=== PATIENT | male | born 1995 | race Caucasian/White ===

== ENCOUNTER → 2024-01-25 09:25 | Day surgery (SDC) | payer OTHER, SELFPAY ==
[2024-01-23 15:06] VITALS: BMI 30.3
--- NOTE | 2024-01-24 10:55 | P.CONAN_ITS ---
HPI - Anesthesia Eval Consult details Narrative: 28yo M for Colonoscopy [facility], [facility] Past Medical History Medical History (Updated 01/23/24 @ 15:04 by Bea Mckeon RN) Hypothyroid Sleep apnea GERD (gastroesophageal reflux disease) Depression Surgical History Surgical History (Updated 01/23/24 @ 15:05 by Bea Mckeon RN) No pertinent past surgical history Social History Social History Patient Tobacco Use Status: Never used Tobacco Advance Directives Information Provided: No Meds Allergies Allergy/AdvReac Type Severity Reaction Status Date / Time Penicillins Allergy Unknown Unknown Verified 01/23/24 15:05 Home Medications ?Medication ?Instructions ?Recorded ?Confirmed ?Last Taken ?Type famotidine 20 mg tablet 20 mg PO BEDTIME 01/23/24 01/23/24 Unknown History fluticasone propionate 50 1 spray intranasal DAILY 01/23/24 01/23/24 Unknown History mcg/actuation nasal spray,suspension levothyroxine 100 mcg tablet 100 mcg PO DAILY 01/23/24 01/23/24 Unknown History loratadine 10 mg tablet (Claritin) 10 mg PO DAILY 01/23/24 01/23/24 Unknown History multivitamin 1 tab PO DAILY 01/23/24 01/23/24 Unknown History sertraline 100 mg tablet 100 mg PO DAILY 01/23/24 01/23/24 Unknown History Exam Height,Weight and Vital Signs: Height 5 ft 11 in Weight 98.43 kg Assessment and Plan Assessment Anesthesia Assessment: Chart Reviewed
--- NOTE | 2024-01-25 10:36 | PC.NURSE ---
pt states took prep. vomited, had applesauce yesterday at 4pm then clear liquids but no bm. notified dr. dawson, case canelled and to call office and reschedule with different prep. pt aware and d/cd no iv or vitals done.
== END ==
PROVIDERS: Visit Provider Internal Medicine Gastroenterology
DX: K62.5 Hemorrhage of anus and rectum (principal); Z53.8 Procedure and treatment not carried out for other reasons; Z79.899 Other long term (current) drug therapy; Z88.0 Allergy status to penicillin